=== PATIENT | female | born 1940 | race Caucasian/White ===

== ENCOUNTER 2019-06-14 06:19 | Inpatient (IN) ==
--- NOTE | 2019-06-09 15:20 | ANES ---
Anesthesia Pre Procedure Eval HOME MEDICATIONS Apixaban [Eliquis] 5 mg PO BID 10/08/15 [Last Taken Unknown] Montelukast Sodium [Singulair] 10 mg PO DAILY 10/08/15 [Last Taken Unknown] diltiazem ER 120 mg capsule,24 hr,extended release 120 mg PO BID #60 cap 05/27/19 [Last Taken Unknown] ezetimibe 10 mg tablet 10 mg PO HS tab 05/27/19 [Last Taken Unknown] hydrochlorothiazide 25 mg tablet 25 mg PO DAILY 05/27/19 [Last Taken Unknown] losartan 50 mg tablet 100 mg PO DAILY tab 05/27/19 [Last Taken Unknown] omeprazole 20 mg capsule,delayed release 20 mg PO DAILY 05/27/19 [Last Taken Unknown] pravastatin 20 mg tablet 10 mg PO HS tab 05/27/19 [Last Taken Unknown] Allergies/Adverse Reactions: Allergies Allergy/AdvReac Type Severity Reaction Status Date / Time Tetanus Vaccines and Toxoid Allergy Hives Verified 06/09/19 08:37 - Planned Procedure Planned Procedure: Left Arthroplasty Total Knee Medication List Reviewed:: Yes Allergies Verified: Yes Medical History (Updated 06/09/19 @ 08:35 by Tran Dodson RN) Atrial fibrillation Abdominal pain Onset Date: Unknown Arthritis Onset Date: Unknown Chickenpox Onset Date: Unknown Cholelithiasis Onset Date: Unknown Contact dermatitis Onset Date: 03/03/07 Dr. Hastings DVT (deep venous thrombosis) Onset Date: ~1992 lt leg Diarrhea Onset Date: Unknown Environmental allergies Onset Date: Unknown Gallbladder disease Onset Date: Unknown Gallstones Onset Date: 2004 Heartburn Onset Date: Unknown History of screening mammography Onset Date: 2004 normal Hyperlipidemia Onset Date: Unknown Hypertension Onset Date: Unknown Irregular heartbeat Onset Date: Unknown Malignant melanoma Onset Date: Unknown excised from forearm 2014 Measles Onset Date: Unknown Mumps Onset Date: Unknown Screening for osteoporosis Onset Date: 2004 bone density scan- normal Sinusitis, chronic Onset Date: Unknown Thrombophlebitis Onset Date: 1993 left leg(Coumadin Therapy for 4 months) Wheezing Onset Date: Unknown Surgical History (Updated 06/09/19 @ 08:36 by Tran Dodson RN) History of appendectomy Onset Date: Unknown post operatve abdominal wall hematoma performed in [place], [place] History of cholecystectomy Onset Date: 02/27/07 Dr. Shabazz History of colonoscopy Onset Date: 12/2013 Dr. Cesar, Repeat in 2014- [place] History of hysterectomy Onset Date: 1985 KEV BSO- performed in [place], [place] History of nasal polypectomy Onset Date: Unknown performed in [place], [place] History of nasal surgery Onset Date: Unknown turbinate resections- middle History of sinus surgery Onset Date: Unknown antrostomies- bilateral History of tonsillectomy Onset Date: Unknown Family History (Updated 06/09/19 @ 08:37 by Tran Dodson RN) Mother , age 83 Diabetes Heart disease Kidney disease nephrectomy Cancer colon Hypertension Cholelithiasis Father Asthma Cancer lung Brother , in his 70's Diabetes Heart disease Brother , in his 70's Heart disease Cholelithiasis Sister Cholelithiasis Aunt Cancer colon - Family Anesthesia History Family History:: no untoward family reactions to anesthesia, no familial bleeding tendencies, no family history of clotting disorders, no family history of premature - Airway/Neck/Teeth Within Normal Limits:: Yes Teeth Condition: intact Denture Type: Perm crown/bridge Mallampatti Score: 2 Thyromental (T-M) distance: > 6 cm Mandibulo Hyoid distance: > 3 cm - Respiratory Smoking Status: Never smoker Discussed smoking cessation including day of surgery: No Sleep Apnea currently treated: No Sleep Apnea by current assessment: No Discussed Risks/Treatment of AMY: No - Cardiovascular Tolerate Activity: Fair Heart Sounds: S1 & S2, Regular - Anesthesia Assessment and Plan ASA Class: PS, III Anesthesia Type Plan: Block - Left ultrasound guided adductor canal nerve block for postop analgesia, Spinal
[~2019-06-14 06:19] MED LIST: MORPHINE SULFATE 15 MG TABLET.SA PO PRN; ROPIVACAINE HCL/PF 100 MG, EPINEPHrine 0.2 MG, KETOROLAC TROMETHAMINE 15 MG in NORMAL S... IJ PRN; TRANEXAMIC ACID 1,000 MG in NORMAL SALINE 100 ML IV PRN; ceFAZolin SODIUM 1 GM VIAL IV PRN
[2019-06-14] MEDS: RINGER'S SOLUTION,LACTATED 1,000 ML IV PRN ×2 (06:58→09:22)
[2019-06-14] MEDS ORDERED: MAG HYDROX/ALUMINUM HYD/SIMETH 30 ML UDC PO PRN (10:05)
[2019-06-14] MEDS ORDERED: ACETAMINOPHEN 500 MG TABLET PO PRN (10:05)
[2019-06-14] MEDS ORDERED: MORPHINE SULFATE 2 MG/ML DISP.SYRIN IV PRN (10:05)
[2019-06-14] MEDS ORDERED: DEXTROSE 5%-LACTATED RINGERS 1,000 ML IV PRN (10:05)
[2019-06-14] MEDS ORDERED: ONDANSETRON HCL/PF 2 MG/ML VIAL IV PRN (10:05)
[2019-06-14] MEDS ORDERED: diphenhydrAMINE HCL 50 MG/ML VIAL IV PRN (10:05)
[2019-06-14] MEDS ORDERED: ZOLPIDEM TARTRATE 5 MG TABLET PO PRN (10:05)
[2019-06-14] MEDS ORDERED: MAGNESIUM HYDROXIDE 30 ML UDC PO PRN (10:05)
--- NOTE | 2019-06-14 10:10 | OR ---
Operative Report - Dictated Report Narrative: Date: 06/14/2019 Preoperative diagnosis: Left knee degenerative joint disease. Postoperative diagnosis: Left knee degenerative joint disease. Procedure: Left total knee arthroplasty. Surgeon: Rod Duckworth M.D. Magento Web Developer: Farooq Mitchell PA-C (provided and essential set of skilled, educated hands that assisted with transfer, positioning, prepping, draping, manipulation, retraction, placement of jigs, injection, insertion of implants, irrigation, closure wounds, and dressings all of which could not be performed by the available surgical crew) Anesthesia: Spinal with general with regional block and local periarticular joint injection. Complications: None Specimens: Bone. Estimated blood loss: Minimal. Tourniquet time: 105 Minutes at 325 millimeters of mercury. Retained implants: Depuy Attune size 6 narrow left lugged cemented posterior stabilized femoral c omponent. Size 5 fixed-bearing cemented tibial platform. 6 by 6 millimeter posterior stabilized cross-linked tibial insert. 38 millimeter medialized patella button. Indications: Mrs. Diallo is a 79-year-old female who has had long-standing left knee pain and arthrosis. This patient was followed in my clinic for period of time with significant complaints of left knee pain consistent with arthritic changes. She had failed conservative measures including, but not limited to, activity modification, passage of time, medications, and other conservative measures. Patient wished to proceed with surgical treatment. The risks, benefits, and alternatives were discussed in clinic. The risks of , blood clots, bleeding, infection, nerve/tendon blood vessel/ injury, malposition of components, intraoperative fracture, postoperative limited range of motion, persistent pain, failure of components, and need for additional procedures. Patient wished to proceed consent was obtained after answering all questions. Procedure: After marking the correct extremity on the floor, the patient was taken to the operating room. A timeout was performed. IV antibiotics consisting of Ancef were administered prior to the procedure. A regional followed by spinal anesthetic was induced by anesthesia, per my request. She did have some regurgitation and coughing and thus a general anesthetic was then induced on the operative table with all bony prominences well-padded. Briseno catheter was placed, and a bump was placed under the operative side buttock. SCDs and FELIX hose were utilized on the nonoperative leg. A well-padded tourniquet was applied to the operative thigh. The operative leg was then pre- scrubbed with alcohol, prepped, and draped in a standard sterile fashion. After exsanguinating the extremity with an Esmarch bandage, the tourniquet was inflated. After marking out the anterior knee for standard incision centered over the patella, the skin was incised and dissected down to the joint retinaculum. The joint retinaculum was marked out as well as the horizontal axis of the patella, and a standard medial parapatellar arthrotomy was then made. The most proximal aspect of the quadriceps tendon and the patella tendon insertion were protected from release. A partial synovectomy was performed as well as a resection of the infrapatellar fat pad. The distal femoral fat pad proximal to the trochlea was also resected using cautery. The soft tissues were elevated off the medial aspect of the proximal tibia using a Anderson elevator ensuring that we did not transect the medial collateral ligament. Upon initial evaluation range of motion was approximately 5 degrees to 90 degrees of flexion. There were signs of advanced arthrosis in the medial, lateral, and patellofemoral joint spaces. There were large marginal osteophytes which were removed with a rongeur. The knee was hyperflexed and the patella was tucked laterally. Protecting the surrounding soft tissues with Homans, an entry drill was placed down the femoral canal using Whitesides line for guidance into the entry point. The intramedullary femoral alignment tad was utilized in order to cut the distal f emur in 5 degrees of valgus resecting 10 millimeters of bone. Next the distal femur was sized to a size 6. A posterior referencing guide was utilized to place the distal femoral cutting block in 3 degrees of external rotation. This was pinned into place. The rotation was confirmed both visually and based on anatomic landmarks. The 4 in 1 cutting jig of the appropriate size was utilized in order to make all bony cuts. The angle wing was used to ensure no notching. Retractors were utilized in order to protect surrounding soft tissues. This cut did not result in any excessive notching. We then cut the box centered over the distal femur. This allowed for resection of the anterior and posterior cruciate ligaments. I then turned my attention to the preparation of the tibia. Using an extra medullary tibial alignment tad, 5 millimeters of bone was resected off the medial articular surface. This was made perpendicular to the mechanical axis of the joint with the alignment tad centered over the ankle mortise. The alignment tad was checked and was noted to be parallel to the mechanical axis, centered over the medial one third of the tibial tubercle, paralleling the anterior surface of the tibia. We then turned our attention to the remaining meniscus and soft tissues. These were removed while protecting the surrounding ligaments and soft tissues. The marginal osteophytes off the anterior, posterior, medial, lateral aspects of the femur and tibia were removed. The tibia was sized out to a size 5. Next the tibia was drilled and punched in an externally rotated position. Next the trial femur and a series of tibial inserts were utilized in order to allow for full extension and maximal flexion. It was found that a 6 millimeter insert gave the best range of motion and stability at multiple flexion points as well as at full extension there was less than 2 mm of gapping both medially and laterally. There is minimal anterior translation with the knee at 90 degrees of flexion and no signs of being able to dislocate the knee. The patella was then prepared. The initial thickness was 22 millimeters. This was reamed down to 12 millimeters parallel to the anterior surface of the patella. It was sized out to a size 38 medialized patella button. This was then drilled and trialed. Without any medial restraint the patella tracked appropriately and did not sublux or dislocate. At this point, it was felt these were the appropriate sized implants, and all trials were removed. The standard periarticular joint injection consisting of ropivacaine, Toradol, and epinephrine were injected into the periarticular joint tissues. The bony surfaces were thoroughly irrigated with a pulsatile-suction saline irrigation device. A bone plug from the prior resected anterior chamfer cut was placed into the drill hole at the distal femur. The bony surfaces were then dried in preparation for placement of the implants. The cement was vacuum mixed per the mobile home mechanic's instructions. The cement was placed on the dry bony surfaces and posterior aspect of the implants. The implants were impacted into place, removing all extruded cement. At this point anesthesia administered tranexamic acid per protocol intravenously. The knee was placed in extension with axial loading with the trial insert while the cement cured. Once the cement cured, all remaining extruded cement was removed. The knee was placed through a range of motion with the trial insert to ensure appropriate range of motion and stability. Final range of motion was approximately 0 to 110 degrees. The knee was again thoroughly irrigated with pulsatile saline lavage. The final polyethylene insert was then impacted into place ensuring no retained soft tissues. The remaining periarticular joint injection was injected. A medium Hemovac drain was placed exiting superior laterally. The knee was then placed over a triangle and the arthrotomy was closed with interrupted #1 Vicryl after thoroughly irrigating the joint. The deep and subcutaneous tissues were closed with interrupted 0 and 3-0 Vicryl respectively. Skin was closed with a running subcutaneous 3-0 Monocryl and Prineo Dermabond dressing. 4 x 4's, Sof-Rol, and a full leg Isai wrap were applied. All sponge, needle, blade, and instrument counts were correct prior to closing the wounds. Postoperative condition: The patient was awoken and transferred to the postanesthesia care unit in stable condition. Plan is to be admitted to the inpatient medical/surgical floor postoperatively for 24 hours of IV antibiotics, physical therapy, occupational therapy, and medical comanagement. Patient will be weightbearing as tolerated with range of motion as tolerated. DVT prophylaxis will be with SCDs, FELIX hose, and pharmacological anticoagulation. Anticipated hospital stay is approximately 1-3 days.
--- NOTE | 2019-06-14 10:22 | ANES ---
Post Anesthesia Discharge - Transfer of Care Transfer of Care handoff given to nurse: Yes - Discharge from PACU Discharge from PACU when meets criteria: Yes - Discharge to ASU Discharge to ASU-no complications/pt stable: Yes
--- NOTE | 2019-06-14 10:24 | ANES ---
Anesthesia Procedure Note Procedure Note: ANESTHESIA PROCEDURE NOTE Date of Procedure: 06/14/2019. Time of procedure: 0740. Performed by: Gary Ahumada CRNA Woodenware Assembler: None. Preprocedure diagnosis: Left knee degenerative joint disease. Post procedure diagnosis: Same. Procedure: Left ultrasound guided adductor canal block for postoperative analgesia. Indications: The patient is a 79-year-old female, requesting left ultrasound- guided abductor canal nerve block for postoperative analgesia related to left total knee arthroplasty. Findings: See below. Details of the procedure: The tissue over the intended target site was cleansed with ChloraPrepand draped in a sterile fashion. 2 ml Lidocaine 1 % was infiltrated to the skin and subcutaneous tissue at the intended target site. Under sterile technique and ultrasound guidance a 20-gauge block needle was inserted through the left sartorius muscle to the saphenous nerve just anterior and medial to the superficial femoral artery and vein. 15 mL's of 0.5% bupivacaine was injected after negative aspiration for blood. Needle tip and spread of local anesthetic surrounding the saphenous nerve was observed throughout the injection with real time ultrasound visualization. The needle was then removed intact. No complications were noted. The images were retained in the Hospital medical database. EBL: Minimal. Fluids: N/A. Specimen: N/A. Post procedure condition: The patient tolerated the procedure well. No complications were noted. Thank you for this consultation. Gary Ahumada CRNA
[2019-06-14] MEDS: KETOROLAC TROMETHAMINE 15 MG/ML VIAL IV SCH ×3 (11:06→21:15)
--- NOTE | 2019-06-14 11:28 | ANES ---
Post Anesthesia Assessment - Vital Signs Vitals: Last Vital Signs Temp 36.3 C 06/14/19 11:08 Pulse 75 06/14/19 11:08 Resp 16 06/14/19 11:08 BP 150/73 H 06/14/19 11:08 Pulse Ox 90 L 06/14/19 11:08 Airway Patency: Normal - Mental Status Level Of Consciousness: Awake - Pain Level Pain Score: 2 - N/V Assessment Nausea/Vomiting Presence: None Dehydration:: No
[2019-06-14] MEDS: ceFAZolin SODIUM 1 GM in DEXTROSE 5 % IN WATER 100 ML IV SCH ×4 (12:02→18:02)
[2019-06-14] MEDS: oxyCODONE HCL/ACETAMINOPHEN 1 TAB TABLET PO PRN ×2 (16:07→21:11)
[2019-06-14] MEDS: MORPHINE SULFATE 15 MG TABLET.SA PO SCH (20:42)
[2019-06-14] MEDS: DILTIAZEM HCL 120 MG CAP.SR.24H PO SCH (20:43)
[2019-06-14] MEDS ORDERED: SIMVASTATIN 5 MG TABLET PO SCH (21:00)
[2019-06-14] MEDS ORDERED: EZETIMIBE 10 MG TABLET PO SCH (21:00)
[2019-06-14] MEDS ORDERED: SENNOSIDES/DOCUSATE SODIUM 1 TAB TABLET PO SCH (21:00)
[2019-06-15] MEDS: ceFAZolin SODIUM 1 GM in DEXTROSE 5 % IN WATER 100 ML IV SCH ×2 (01:20)
[2019-06-15] MEDS: oxyCODONE HCL/ACETAMINOPHEN 1 TAB TABLET PO PRN (02:56)
[2019-06-15] MEDS: KETOROLAC TROMETHAMINE 15 MG/ML VIAL IV SCH ×3 (04:28→17:01)
[2019-06-15 05:57] LABS: Hematocrit 35.4 % (37.0-47.0); Mean Cell Volume 93.2 fl (78-100); Mean Corpuscular Hemoglobin 31.6 pg (27-31); Mean Corpuscular Hgb Conc 33.9 g/dl (32-36); Mean Platelet Volume 9.8 fl (8-12.5); Platelet Count 184 K/mm3 (150-450); Red Cell Distribution Width 13.6 % (11.5-14.0); White Blood Count 8.6 K/mm3 (4.0-10.5)
[2019-06-15 06:05] LABS: Anion Gap 13.6 mmol/L (6.8-13.8); BUN/Creatinine Ratio 15.9 (9.0-21.6); Calcium * 8.1 mg/dL (7.9-10.9); Carbon Dioxide 27.5 mmol/L (24-32.6); Estimated Creat Clear 49.2; Potassium 3.1 mmol/L (3.4-4.6)
[2019-06-15] MEDS ORDERED: APIXABAN 5 MG TABLET PO SCH (07:00)
[2019-06-15] MEDS: MORPHINE SULFATE 15 MG TABLET.SA PO SCH (08:53)
[2019-06-15] MEDS: DILTIAZEM HCL 120 MG CAP.SR.24H PO SCH (08:55)
[2019-06-15] MEDS ORDERED: HYDROCHLOROTHIAZIDE 25 MG TABLET PO SCH (09:00)
[2019-06-15] MEDS ORDERED: MONTELUKAST SODIUM 10 MG TABLET PO SCH (09:00)
[2019-06-15] MEDS ORDERED: PANTOPRAZOLE SODIUM 20 MG TABLET.DR PO SCH (09:00)
[2019-06-15] MEDS ORDERED: LOSARTAN POTASSIUM 50 MG TABLET PO SCH (09:00)
--- NOTE | 2019-06-15 15:22 | DS ---
(1) Status post left knee replacement Problem: Acute (2) Acute blood loss anemia Problem: Acute (3) Atrial fibrillation Problem: Chronic (4) Hypertension Problem: Chronic (5) Hyperlipidemia Problem: Chronic (6) GERD (gastroesophageal reflux disease) Problem: Chronic (7) Nausea Problem: Acute Date of Discharge:: 06/15/19 Description of Stay: Mrs. Diallo was admitted to the floor after undergoing left total knee arthroplasty. Tolerated this well. Was admitted to the floor postoperatively for 24 hours of IV antibiotics, pain control, medical comanagement, and occupational and physical therapy. OT and PT were consulted to assist with activities of daily living and ambulation. Was made weightbearing as tolerated with range of motion as tolerated. Pain was initially controlled with IV regimen. This was transitioned to oral once tolerating a by mouth intake. Was resumed on home diet and medications. Had a Briseno catheter inserted and the operating room which was discontinued on postoperative day 1. A drain was placed intraoperatively into the knee which was discontinued on postoperative day 1. Eliquis SCD and FELIX hose were utilized for DVT prophylaxis. Vital signs remained stable to the hospital course. Serial labs were obtained which showed a final hemoglobin of 12.0 grams down from 15.4 grams preoperatively. BMP was reviewed and was stable. Physical examination throughout the hospital course showed an extremity that had sensation that was intact to light touch, palpable pulses, a benign wound, motor intact to the toes, ankle, and knee. Knee range of motion was approximately 5 degrees to 75 degrees. She did have some mild complaints of nausea but no vomiting. Once an oral pain regimen was tolerated and physical therapy goals were met, it was felt that they were stable for discharge to home. Instructions: Continue with weightbearing as tolerated and range of motion as tolerated. It is OK to shower on the wound if it is not draining. If you note any drainage or for comfort you can cover with dry gauze and tape. Change every 2-3 days as needed. Continue with physical therapy. Resume home diet. Report any fever over 101.5 Fahrenheit, uncontrolled pain, increased drainage, foul odor of dr adams, new or increased calf pain or shortness of breath, or any other significant complaints. She is to resume her normal Eliquis dose at home. Continue home medications. She was discharged with MS Contin and Percocet for pain. She was also discharged with Phenergan for nausea as well as Senokot for constipation. Continue with FELIX hose on the operative extremity until instructed otherwise. No driving until instructed otherwise. Follow up in approximately 10-14 days. Procedures Performed: see notes below List Procedures: Left total knee arthroplasty Results and Findings: Lab Pending Results 06/15/19 05:52: WBC 8.6, RBC 3.80 L, Hgb 12.0 L, Hct 35.4 L, MCV 93.2, MCH 31.6 H, MCHC 33.9, RDW 13.6, Plt Count 184, MPV 9.8 06/15/19 05:52: Sodium 139, Plasma Sodium 139, Potassium 3.1 L, Chloride 101, Carbon Dioxide 27.5, Anion Gap 13.6, BUN 13, Creatinine 0.82, Est GFR (Non-Af Amer) 72 D, BUN/Creatinine Ratio 15.9, Random Glucose 129 H, Calcium 8.1 Discharge Location: Home Disposition: Home self-care Condition: Good Discharge Activity: Activity as tolerated - With wheeled walker, Weight bearing Discharge Diet: Low salt, Low fat/chol Referrals: Rod Duckworth MD [Staff Physician] - 07/06/19 10:30 am Problem Oriented Discharge Instructions to Patient/Family: Total Knee Replacement, Care After, [id number] Additional Patient Instructions (free text): Physical Therapy at [facility] on June 17 at 7:45am. Follow up in the office with Dr. Duckworth on 07/06/19 at 10:30am. Prescriptions (Any new or edited meds): Morphine Sulfate [Ms Contin] 15 mg PO Q12H #14 tablet.sa oxyCODONE HCL/ACETAMINOPHEN [Percocet 5 MG/325 MG] 2 tab PO Q4H PRN #60 tab PRN Reason: Moderate Pain (Pain Scale 4-6) Promethazine HCl [Phenergan (Promethazine)] 25 mg PO Q6H PRN #30 tab PRN Reason: nausea/vomiting Sennosides/Docusate Sodium [Senokot-S] 2 tab PO HS #30 tab Complete Home Medications List: Complete Home Medication List: Apixaban [Eliquis] 5 mg PO BID 10/08/15 Montelukast Sodium [Singulair] 10 mg PO DAILY 10/08/15 diltiazem ER 120 mg capsule,24 hr,extended release 120 mg PO BID #60 cap 05/27/19 ezetimibe 10 mg tablet 10 mg PO HS tab 05/27/19 hydrochlorothiazide 25 mg tablet 25 mg PO DAILY 05/27/19 losartan 50 mg tablet 100 mg PO DAILY tab 05/27/19 omeprazole 20 mg capsule,delayed release 20 mg PO DAILY 05/27/19 pravastatin 20 mg tablet 10 mg PO HS tab 05/27/19 Morphine Sulfate [Ms Contin] 15 mg PO Q12H #14 tablet.sa 06/15/19 Promethazine HCl [Phenergan (Promethazine)] 25 mg PO Q6H PRN #30 tab 06/15/19 Sennosides/Docusate Sodium [Senokot-S] 2 tab PO HS #30 tab 06/15/19 oxyCODONE HCL/ACETAMINOPHEN [Percocet 5 MG/325 MG] 2 tab PO Q4H PRN #60 tab 06/15/19 Amb Orders for Discharge: PT Evaluation and Treatment* Facility: [facility], Location: Rehabilitation Services
[2019-06-15 17:55] VITALS: BP 142/69
== END 2019-06-15 18:05 | disposition home or self-care (01) | DRG 470 ==
LOC: MS 06:19 → EDSTATUS 08:00
PROVIDERS: ADMIT Orthopaedic Surgery; ATTEND Orthopaedic Surgery
DX: D62 Acute posthemorrhagic anemia; M17.12 Unilateral primary osteoarthritis, left knee; I10 Essential (primary) hypertension; E78.5 Hyperlipidemia, unspecified; K21.9 Gastro-esophageal reflux disease without esophagitis; I48.20 Chronic atrial fibrillation, unspecified
CPT/HCPCS: 36415; 73560; 80048; 85027; 97110; 97116; 97161; 97165; 97535; J2405